=== PATIENT | female | born 1945 | race Caucasian/White ===

== ENCOUNTER 2017-09-18 13:49 | Observation (INO) ==
[2017-09-18] MEDS ORDERED: POTASSIUM CHLORIDE 20 MEQ TABLET PO PRN (13:58)
[2017-09-18] MEDS ORDERED: MAGNESIUM SULF RIDER 4 GM in PREMIX 1 EACH IV PRN (13:58)
[2017-09-18] MEDS ORDERED: BISACODYL 5 MG TABLET PO PRN (13:58)
[2017-09-18] MEDS ORDERED: MAGNESIUM SULF RIDER 2 GM in PREMIX 1 EACH IV PRN ×2 (13:58→14:01)
[2017-09-18] MEDS ORDERED: ZALEPLON 5 MG CAPSULE PO PRN (13:58)
[2017-09-18] MEDS ORDERED: ACETAMINOPHEN 325 MG TABLET PO PRN (13:58)
[2017-09-18] MEDS ORDERED: ONDANSETRON 4 MG/2 ML VIAL IV PRN (13:58)
[2017-09-18] MEDS ORDERED: POTASSIUM CHLORIDE RIDER 10 MEQ in PREMIX 1 EACH IV PRN (14:01)
[2017-09-18 15:33] LABS: Basophils # 0.1 10*3/uL (0.0-0.2); Basophils % 0.6 % (0.0-0.8); Eosinophils # 0.2 10*3/uL (0.0-0.87); Eosinophils % 2.7 % (0.00-10.9); Hematocrit 39.7 VOL% (35.7-47.0); Hemoglobin 13.9 GM/DL (12.0-16.0); Immature Granulocytes % 0.4 %; Immature Granulocytes Absolute 0.03 #; Lymphocytes # 2.6 10*3/uL (1.4-4.0); Lymphocytes % 31.3 % (21.3-54.2); Mean Corpuscular Hemoglobin 31 PG (27-34); Mean Platelet Volume 10.6 FL (9.6-12.0); Monocytes # 0.4 10*3/uL (0.11-0.8); Monocytes % 4.5 % (1.7-12.7); Neutrophils % 60.5 % (38.7-73.9); Platelet Count 236 T/CUMM (130-400); Red Blood Count 4.46 MC/CUMM (3.8-5.5); Red Cell Distribution Width 12.4 % (9.3-17.3); White Blood Count 8.2 T/CUMM (4-12)
[2017-09-18 15:43] LABS: PT Patient Result 10.7 SECS
[2017-09-18 16:24] LABS: Albumin 4.3 G/DL (3.4-5.0); Bilirubin,Total 0.7 MG/DL (0.2-1.0); Calcium 9.4 MG/DL (8.5-10.1); Osmolality,Calculated 282.5 MOS/KG (273-304); Potassium 4.2 MMOL/L (3.5-5.1); Total Protein 7.5 G/DL (6.4-8.3)
[2017-09-18 16:29] LABS: Troponin I Only < 0.015 NG/ML (0.00-0.045)
[2017-09-18 17:43] LABS: Troponin I Only < 0.015 NG/ML (0.00-0.045)
[2017-09-18] MEDS: INSULIN REGULAR 100 UNIT/ML SUBCUT SCH ×2 (18:26→22:30)
[2017-09-18] MEDS: ASPIRIN EC 81 MG TABLET PO SCH (18:29)
[2017-09-18 21:42] LABS: Troponin I Only < 0.015 NG/ML (0.00-0.045)
[2017-09-19 02:27] LABS: Basophils % 0.5 % (0.0-0.8); Eosinophils # 0.3 10*3/uL (0.0-0.87); Eosinophils % 3.2 % (0.00-10.9); Hematocrit 35.6 VOL% (35.7-47.0); Hemoglobin 12.3 GM/DL (12.0-16.0); Immature Granulocytes % 0.3 %; Immature Granulocytes Absolute 0.02 #; Lymphocytes # 3.5 10*3/uL (1.4-4.0); Lymphocytes % 45.7 % (21.3-54.2); Mean Corpuscular HGB Conc 34.6 GM/DL (32-36); Mean Corpuscular Hemoglobin 31 PG (27-34); Mean Corpuscular Volume 89.7 FL (87-102); Mean Platelet Volume 10.8 FL (9.6-12.0); Monocytes # 0.5 10*3/uL (0.11-0.8); Monocytes % 6.2 % (1.7-12.7); Neutrophils # 3.4 10*3/uL (1.4-7.4); Neutrophils % 44.1 % (38.7-73.9); Platelet Count 193 T/CUMM (130-400); Red Blood Count 3.97 MC/CUMM (3.8-5.5); Red Cell Distribution Width 12.1 % (9.3-17.3); White Blood Count 7.7 T/CUMM (4-12)
[2017-09-19 02:53] LABS: Calcium 8.6 MG/DL (8.5-10.1); Osmolality,Calculated 290.8 MOS/KG (273-304); Potassium 3.7 MMOL/L (3.5-5.1); Risk Ratio 3.94; VLDL CHOLESTEROL 24.8 MG/DL
[2017-09-19] MEDS ORDERED: SODIUM CHLORIDE 0.9% 1,000 ML IV SCH ×2 (04:00→06:00)
[2017-09-19] MEDS ORDERED: CLOPIDOGREL 75 MG TABLET ONE (06:45)
[2017-09-19] MEDS: PANTOPRAZOLE 40 MG TABLET PO SCH (06:50)
[2017-09-19] MEDS: LISINOPRIL 10 MG TABLET PO SCH (06:50)
[2017-09-19] MEDS: CLOPIDOGREL 75 MG TABLET PO SCH ×2 (06:50→15:58)
[2017-09-19] MEDS: ASPIRIN EC 81 MG TABLET PO SCH ×2 (06:51→15:56)
[2017-09-19] MEDS ORDERED: DIAZEPAM 5 MG TABLET PO ONE ×2 (07:00→09:00)
[2017-09-19] MEDS ORDERED: diphenhydrAMINE CAP 25 MG CAPSULE PO ONE ×2 (07:00→09:00)
[2017-09-19] MEDS ORDERED: fentaNYL 100 MCG/2 ML VIAL ONE (07:04)
[2017-09-19] MEDS ORDERED: MIDAZOLAM 2 MG/2 ML VIAL ONE (07:04)
[2017-09-19] MEDS ORDERED: BIVALIRUDIN 250 MG VIAL IV ONE (07:22)
[2017-09-19] MEDS ORDERED: LIDOCAINE 1% 20 ML VIAL ONE (07:32)
[2017-09-19] MEDS ORDERED: HEPARIN/NACL 0.9% 2 UNITS/ML 1,500 ML IV ONE (07:32)
[2017-09-19] MEDS: INSULIN REGULAR 100 UNIT/ML SUBCUT SCH ×4 (07:41→20:33)
[2017-09-19] MEDS ORDERED: hydrALAZINE 20 MG/1 ML VIAL ONE (07:45)
[2017-09-19] MEDS ORDERED: hydrALAZINE 20 MG/1 ML VIAL IV PRN (08:02)
[2017-09-19] MEDS ORDERED: CLOPIDOGREL 300 MG TABLET ONE (08:11)
[2017-09-19 08:35] LABS: Apearance,Urine CLEAR (Clear); Bilirubin,Urine Negative (Negative); Blood, Urine Negative (Negative); Glucose,Urine (UA) Negative (Negative); Ketones,Urine Negative (Negative); Nitrite,Urine Negative (Negative); Protein,Urine Negative; RBC,Urine 1 /HPF (0-4); Urine Color Colorless (Yellow); Urine Specific Gravity 1.026 (1.001-1.035); Urine Urobilinogen < 2.0 EU/DL (0.2-1.0); WBC,Urine <1 /HPF (0-6)
[2017-09-19] MEDS ORDERED: diphenhydrAMINE CAP 25 MG CAPSULE PO PRN (13:43)
[2017-09-19] MEDS ORDERED: MAGNESIUM HYDROXIDE SUSP 30 ML UDCUP PO PRN (13:43)
[2017-09-19] MEDS: CYANOCOBALAMIN 500 MCG TABLET PO SCH (17:54)
[2017-09-19] MEDS: ATORVASTATIN 40 MG TABLET PO SCH (17:55)
[2017-09-19] MEDS: CITALOPRAM 20 MG TABLET PO SCH (17:55)
[2017-09-19] MEDS: CHOLECALCIFEROL 2000 UNIT PO SCH (17:55)
[2017-09-19] MEDS: CARVEDILOL 3.125 MG TABLET PO SCH ×2 (17:56→20:22)
[2017-09-20 01:02] LABS: Basophils # 0.1 10*3/uL (0.0-0.2); Basophils % 0.6 % (0.0-0.8); Eosinophils # 0.3 10*3/uL (0.0-0.87); Hematocrit 35.6 VOL% (35.7-47.0); Hemoglobin 12.1 GM/DL (12.0-16.0); Immature Granulocytes % 0.3 %; Immature Granulocytes Absolute 0.02 #; Lymphocytes # 2.6 10*3/uL (1.4-4.0); Lymphocytes % 33.2 % (21.3-54.2); Mean Corpuscular Hemoglobin 30 PG (27-34); Mean Corpuscular Volume 89.4 FL (87-102); Mean Platelet Volume 11.2 FL (9.6-12.0); Monocytes # 0.5 10*3/uL (0.11-0.8); Monocytes % 5.8 % (1.7-12.7); Neutrophils # 4.4 10*3/uL (1.4-7.4); Neutrophils % 56.1 % (38.7-73.9); Platelet Count 199 T/CUMM (130-400); Red Blood Count 3.98 MC/CUMM (3.8-5.5); Red Cell Distribution Width 12.5 % (9.3-17.3); White Blood Count 7.9 T/CUMM (4-12)
[2017-09-20 01:28] LABS: Calcium 8.4 MG/DL (8.5-10.1); Osmolality,Calculated 283.3 MOS/KG (273-304); Potassium 3.7 MMOL/L (3.5-5.1); Potassium 3.8 MMOL/L (3.5-5.1)
[2017-09-20 07:52] VITALS: BP 118/71
[2017-09-20] MEDS: INSULIN REGULAR 100 UNIT/ML SUBCUT SCH (07:58)
[2017-09-20] MEDS: CHOLECALCIFEROL 2000 UNIT PO SCH (09:32)
[2017-09-20] MEDS: CYANOCOBALAMIN 500 MCG TABLET PO SCH ×2 (09:33→09:37)
[2017-09-20] MEDS: CLOPIDOGREL 75 MG TABLET PO SCH (09:33)
[2017-09-20] MEDS: CITALOPRAM 20 MG TABLET PO SCH (09:33)
[2017-09-20] MEDS: ATORVASTATIN 40 MG TABLET PO SCH (09:33)
[2017-09-20] MEDS: CARVEDILOL 3.125 MG TABLET PO SCH (09:33)
[2017-09-20] MEDS: LISINOPRIL 10 MG TABLET PO SCH (09:33)
[2017-09-20] MEDS: ASPIRIN EC 81 MG TABLET PO SCH (09:33)
[2017-09-20] MEDS: PANTOPRAZOLE 40 MG TABLET PO SCH (09:33)
== END 2017-09-20 12:25 | disposition home or self-care (01) ==
LOC: INTOOBSV 13:58 → N.TELEN 14:54
PROVIDERS: ADMIT Internal Medicine Cardiovascular Disease; ATTEND Internal Medicine Cardiovascular Disease
PROC: CLCCHCL (ICD-10-PCS; 2017-09-19 07:45)

== ENCOUNTER 2017-10-28 10:39 | Observation (INO) ==
[2017-10-28 10:59] LABS: Basophils % 0.4 % (0.0-0.8); Eosinophils % 0.4 % (0.00-10.9); Hematocrit 40.8 VOL% (35.7-47.0); Hemoglobin 14.8 GM/DL (12.0-16.0); Immature Granulocytes % 0.5 %; Immature Granulocytes Absolute 0.05 #; Lymphocytes # 1.7 10*3/uL (1.4-4.0); Lymphocytes % 17.7 % (21.3-54.2); Mean Corpuscular HGB Conc 36.3 GM/DL (32-36); Mean Corpuscular Hemoglobin 31 PG (27-34); Mean Corpuscular Volume 86.6 FL (87-102); Mean Platelet Volume 10.9 FL (9.6-12.0); Monocytes # 0.5 10*3/uL (0.11-0.8); Neutrophils # 7.4 10*3/uL (1.4-7.4); Platelet Count 237 T/CUMM (130-400); Red Blood Count 4.71 MC/CUMM (3.8-5.5); Red Cell Distribution Width 12.1 % (9.3-17.3); White Blood Count 9.8 T/CUMM (4-12)
[2017-10-28 11:22] LABS: Alanine Aminotransferase 19 U/L (13-56); Albumin 4.1 G/DL (3.4-5.0); Alkaline Phosphatase 68 U/L (45-117); Aspartate Amino Transferase 19 U/L (0-37); Blood Urea Nitrogen 13 MG/DL (7-18); Calcium 8.9 MG/DL (8.5-10.1); Glucose 174 MG/DL (74-106); Osmolality,Calculated 282.4 MOS/KG (273-304); Potassium 3.7 MMOL/L (3.5-5.1); Sodium 140 MMOL/L (136-145); Total Protein 7.5 G/DL (6.4-8.3); Troponin I Only < 0.015 NG/ML (0.00-0.045)
[2017-10-28] MEDS ORDERED: MAGNESIUM SULF RIDER 2 GM in PREMIX 1 EACH IV PRN ×2 (13:13→15:08)
[2017-10-28] MEDS ORDERED: MAGNESIUM SULF RIDER 4 GM in PREMIX 1 EACH IV PRN ×2 (13:13→15:08)
[2017-10-28] MEDS ORDERED: POTASSIUM CHLORIDE 20 MEQ TABLET PO PRN (15:08)
[2017-10-28] MEDS ORDERED: ONDANSETRON 4 MG/2 ML VIAL IV PRN (15:08)
[2017-10-28] MEDS ORDERED: DOCUSATE SODIUM 100 MG CAPSULE PO PRN (15:08)
[2017-10-28] MEDS ORDERED: MORPHINE 4 MG/1 ML VIAL IV PRN (15:08)
[2017-10-28] MEDS ORDERED: ZALEPLON 5 MG CAPSULE PO PRN (15:08)
[2017-10-28] MEDS ORDERED: diphenhydrAMINE CAP 25 MG CAPSULE PO PRN (15:13)
[2017-10-28] MEDS ORDERED: MAGNESIUM HYDROXIDE SUSP 30 ML UDCUP PO PRN (15:13)
[2017-10-28] MEDS ORDERED: HYOSCYAMINE 0.125 MG TABLET SL PRN (15:13)
[2017-10-28] MEDS ORDERED: METOPROLOL SUCCINATE XL 25 MG TABLET PO SCH (15:30)
[2017-10-28] MEDS: ISOSORBIDE MONONITRATE 30 MG TABLET PO SCH (17:24)
[2017-10-28] MEDS: SODIUM CHLORIDE 0.45% 1,000 ML IV SCH (17:24)
[2017-10-28] MEDS ORDERED: ATORVASTATIN 40 MG TABLET PO SCH (21:00)
[2017-10-28] MEDS ORDERED: CITALOPRAM 20 MG TABLET PO SCH (21:00)
[2017-10-28] MEDS: INSULIN LISPRO 100 UNIT/ML SUBCUT SCH (21:03)
[2017-10-28] MEDS: RANOLAZINE 500 MG TABLET PO SCH (21:09)
[2017-10-29 00:30] LABS: Basophils % 0.3 % (0.0-0.8); Eosinophils # 0.1 10*3/uL (0.0-0.87); Hematocrit 36.4 VOL% (35.7-47.0); Hemoglobin 12.8 GM/DL (12.0-16.0); Immature Granulocytes % 0.4 %; Immature Granulocytes Absolute 0.05 #; Lymphocytes # 3.9 10*3/uL (1.4-4.0); Lymphocytes % 33.7 % (21.3-54.2); Mean Corpuscular HGB Conc 35.2 GM/DL (32-36); Mean Corpuscular Hemoglobin 31 PG (27-34); Mean Corpuscular Volume 87.1 FL (87-102); Monocytes # 0.7 10*3/uL (0.11-0.8); Monocytes % 6.3 % (1.7-12.7); Neutrophils # 6.8 10*3/uL (1.4-7.4); Neutrophils % 58.3 % (38.7-73.9); Platelet Count 201 T/CUMM (130-400); Red Blood Count 4.18 MC/CUMM (3.8-5.5); Red Cell Distribution Width 12.2 % (9.3-17.3); White Blood Count 11.7 T/CUMM (4-12)
[2017-10-29 00:49] LABS: Risk Ratio 3.75; VLDL CHOLESTEROL 27.4 MG/DL
[2017-10-29 01:01] LABS: Albumin 3.6 G/DL (3.4-5.0); Bilirubin,Total 1.1 MG/DL (0.2-1.0); Calcium 8.6 MG/DL (8.5-10.1); Osmolality,Calculated 285.3 MOS/KG (273-304); Potassium 3.9 MMOL/L (3.5-5.1); Total Protein 6.4 G/DL (6.4-8.3)
[2017-10-29 06:08] LABS: Apearance,Urine CLEAR (Clear); Bilirubin,Urine Negative (Negative); Blood, Urine Negative (Negative); Glucose,Urine (UA) Negative (Negative); Ketones,Urine Negative (Negative); Mucus,Urine Occasional /LPF (Occasional); Nitrite,Urine Negative (Negative); Protein,Urine Negative; RBC,Urine <1 /HPF (0-4); Squamous Epithelial Cell,Urine Occasional /HPF (0-10); Urine Color Yellow (Yellow); Urine Specific Gravity 1.017 (1.001-1.035); Urine Urobilinogen < 2.0 EU/DL (0.2-1.0); WBC,Urine 5 /HPF (0-6)
[2017-10-29] MEDS: SODIUM CHLORIDE 0.45% 1,000 ML IV SCH (06:20)
[2017-10-29] MEDS ORDERED: metFORMIN 500 MG TABLET PO SCH (08:00)
[2017-10-29] MEDS ORDERED: ASPIRIN EC 81 MG TABLET PO SCH (09:00)
[2017-10-29] MEDS ORDERED: CYANOCOBALAMIN 500 MCG TABLET PO SCH (09:00)
[2017-10-29] MEDS ORDERED: CHOLECALCIFEROL 1,000 UNIT TABLET PO SCH (09:00)
[2017-10-29] MEDS ORDERED: CLOPIDOGREL 75 MG TABLET PO SCH (09:00)
[2017-10-29] MEDS ORDERED: PANTOPRAZOLE 40 MG TABLET PO SCH (09:00)
[2017-10-29] MEDS: ISOSORBIDE MONONITRATE 30 MG TABLET PO SCH (09:30)
[2017-10-29] MEDS: RANOLAZINE 500 MG TABLET PO SCH (09:30)
[2017-10-29] MEDS: INSULIN LISPRO 100 UNIT/ML SUBCUT SCH ×2 (09:32→12:13)
[2017-10-29 11:59] VITALS: BP 120/58
== END 2017-10-29 15:02 | disposition home or self-care (01) ==
LOC: N.ED 10:39 → N.EDINP 10:39 → N.TELES 15:15
PROVIDERS: ADMIT Internal Medicine Cardiovascular Disease; ATTEND Internal Medicine Cardiovascular Disease

== ENCOUNTER 2019-09-01 10:50 | Inpatient (IN) ==
[2019-09-01 11:49] LABS: Basophils % 0.7 % (0.0-0.8); Eosinophils # 0.2 10*3/uL (0.0-0.87); Eosinophils % 2.9 % (0.00-10.9); Hematocrit 37.5 VOL% (35.7-47.0); Hemoglobin 12.1 GM/DL (12.0-16.0); Immature Granulocytes % 0.2 %; Immature Granulocytes Absolute 0.01 #; Lymphocytes # 1.3 10*3/uL (1.4-4.0); Lymphocytes % 23.7 % (21.3-54.2); Mean Corpuscular HGB Conc 32.3 GM/DL (32-36); Mean Corpuscular Volume 92.8 FL (87-102); Monocytes % 5.6 % (1.7-12.7); Neutrophils % 66.9 % (38.7-73.9); Platelet Count 175 T/CUMM (130-400); Red Blood Count 4.04 MC/CUMM (3.8-5.5); Red Cell Distribution Width 12.5 % (9.3-17.3); White Blood Count 5.5 T/CUMM (4-12)
[2019-09-01 11:59] LABS: Bilirubin,Total 0.8 MG/DL (0.2-1.0); Calcium 9.4 MG/DL (8.5-10.1); Osmolality,Calculated 280.4 MOS/KG (273-304); Total Protein 7.1 G/DL (6.4-8.3)
[2019-09-01] MEDS ORDERED: ONDANSETRON 4 MG/2 ML VIAL IV PRN (13:03)
[2019-09-01] MEDS ORDERED: ACETAMINOPHEN 325 MG TABLET PO PRN (13:03)
[2019-09-01 13:59] LABS: Apearance,Urine CLOUDY (Clear); Bilirubin,Urine Negative (Negative); Blood, Urine Small mg/dL (Negative); Glucose,Urine (UA) Negative (Negative); Hyaline Casts,Urine 5 /LPF (0-3); Ketones,Urine Negative (Negative); Mucus,Urine Many /LPF (Occasional); Nitrite,Urine Negative (Negative); Protein,Urine Negative; RBC,Urine 3 /HPF (0-4); Squamous Epithelial Cell,Urine Occasional /HPF (0-10); Urine Color Amber (Yellow); Urine Specific Gravity 1.028 (1.001-1.035); WBC,Urine 1 /HPF (0-6)
[2019-09-01] MEDS ORDERED: GLUCAGON 1 MG VIAL IM PRN (16:51)
[2019-09-01] MEDS ORDERED: DEXTROSE 10% 250 ML BAG IV PRN (16:51)
[2019-09-01] MEDS: DONEPEZIL 10 MG TABLET PO SCH (21:17)
[2019-09-01] MEDS: ATORVASTATIN 40 MG TABLET PO SCH (21:18)
[2019-09-01] MEDS: INSULIN LISPRO 100 UNIT/ML SUBCUT SCH (21:22)
[2019-09-02 04:30] LABS: Basophils % 0.5 % (0.0-0.8); Eosinophils # 0.2 10*3/uL (0.0-0.87); Eosinophils % 4.1 % (0.00-10.9); Hematocrit 36.9 VOL% (35.7-47.0); Hemoglobin 12.1 GM/DL (12.0-16.0); Immature Granulocytes % 0.2 %; Immature Granulocytes Absolute 0.01 #; Lymphocytes # 2.3 10*3/uL (1.4-4.0); Lymphocytes % 39.6 % (21.3-54.2); Mean Corpuscular HGB Conc 32.8 GM/DL (32-36); Mean Corpuscular Volume 92.7 FL (87-102); Mean Platelet Volume 11.1 FL (9.6-12.0); Neutrophils % 48.6 % (38.7-73.9); Platelet Count 161 T/CUMM (130-400); Red Blood Count 3.98 MC/CUMM (3.8-5.5); Red Cell Distribution Width 12.4 % (9.3-17.3); White Blood Count 5.9 T/CUMM (4-12)
[2019-09-02 05:14] LABS: Calcium 8.9 MG/DL (8.5-10.1); Osmolality,Calculated 282.1 MOS/KG (273-304); Risk Ratio 2.23; Thyroid Stimulating Hormone 2.31 uIU/ml (0.358-3.74)
[2019-09-02] MEDS: INSULIN LISPRO 100 UNIT/ML SUBCUT SCH ×4 (08:31→20:12)
[2019-09-02] MEDS ORDERED: CLOPIDOGREL 75 MG TABLET PO SCH (09:00)
[2019-09-02] MEDS ORDERED: ASPIRIN EC 81 MG TABLET PO SCH (09:00)
[2019-09-02] MEDS ORDERED: ceFAZolin 1,000 MG in SYRINGE 1 EACH IV ONE (09:20)
[2019-09-02] MEDS ORDERED: ceFAZolin 1,000 MG VIAL IRRIG ONE (09:20)
[2019-09-02] MEDS ORDERED: HEPARIN/NACL 0.9% 2 UNITS/ML 500 ML IV ONE (09:22)
[2019-09-02] MEDS ORDERED: LIDOCAINE 1% 20 ML VIAL ONE (09:22)
[2019-09-02] MEDS ORDERED: ceFAZolin 1,000 MG VIAL ONE (09:33)
[2019-09-02] MEDS ORDERED: fentaNYL 100 MCG/2 ML VIAL ONE (09:35)
[2019-09-02] MEDS ORDERED: MIDAZOLAM 2 MG/2 ML VIAL ONE (09:35)
[2019-09-02] MEDS ORDERED: TISSUE ADHESIVE 1 EACH APPLICATOR TOP ONE (10:34)
[2019-09-02] MEDS: FLUoxetine 20 MG CAPSULE PO SCH (11:45)
[2019-09-02] MEDS: METOPROLOL SUCCINATE XL 50 MG TABLET PO SCH ×2 (11:45→20:12)
[2019-09-02] MEDS: ISOSORBIDE MONONITRATE 30 MG TABLET PO SCH (11:45)
[2019-09-02] MEDS: CHOLECALCIFEROL 1,000 UNIT TABLET PO SCH (11:45)
[2019-09-02] MEDS: CYANOCOBALAMIN 500 MCG TABLET PO SCH (11:45)
[2019-09-02] MEDS: ceFAZolin 1,000 MG in SYRINGE 1 EACH IV SCH (16:10)
[2019-09-02] MEDS ORDERED: diphenhydrAMINE 50 MG/1 ML VIAL IV ONE (16:13)
[2019-09-02] MEDS ORDERED: diphenhydrAMINE CAP 25 MG CAPSULE PO PRN (16:17)
[2019-09-02] MEDS: DONEPEZIL 10 MG TABLET PO SCH (20:12)
[2019-09-02] MEDS: ATORVASTATIN 40 MG TABLET PO SCH (20:12)
[2019-09-03] MEDS: ceFAZolin 1,000 MG in SYRINGE 1 EACH IV SCH (01:35)
[2019-09-03 04:57] LABS: Basophils % 0.6 % (0.0-0.8); Eosinophils # 0.3 10*3/uL (0.0-0.87); Eosinophils % 3.8 % (0.00-10.9); Hematocrit 37.6 VOL% (35.7-47.0); Hemoglobin 12.5 GM/DL (12.0-16.0); Immature Granulocytes % 0.3 %; Immature Granulocytes Absolute 0.02 #; Lymphocytes # 1.7 10*3/uL (1.4-4.0); Lymphocytes % 24.4 % (21.3-54.2); Mean Corpuscular HGB Conc 33.2 GM/DL (32-36); Mean Corpuscular Volume 90.6 FL (87-102); Monocytes % 5.6 % (1.7-12.7); Neutrophils % 65.3 % (38.7-73.9); Platelet Count 159 T/CUMM (130-400); Red Blood Count 4.15 MC/CUMM (3.8-5.5); Red Cell Distribution Width 12.3 % (9.3-17.3); White Blood Count 7.1 T/CUMM (4-12)
[2019-09-03 05:28] LABS: Calcium 8.9 MG/DL (8.5-10.1); Osmolality,Calculated 278.5 MOS/KG (273-304)
[2019-09-03] MEDS: INSULIN LISPRO 100 UNIT/ML SUBCUT SCH ×2 (08:12→12:15)
[2019-09-03] MEDS: CHOLECALCIFEROL 1,000 UNIT TABLET PO SCH (08:12)
[2019-09-03] MEDS: METOPROLOL SUCCINATE XL 50 MG TABLET PO SCH (08:13)
[2019-09-03] MEDS: FLUoxetine 20 MG CAPSULE PO SCH (08:13)
[2019-09-03] MEDS: CYANOCOBALAMIN 500 MCG TABLET PO SCH (08:13)
[2019-09-03] MEDS: ISOSORBIDE MONONITRATE 30 MG TABLET PO SCH (08:13)
[2019-09-03 12:09] VITALS: BP 129/67
== END 2019-09-03 12:47 | disposition home or self-care (01) | DRG 244 ==
LOC: N.ED 10:50 → N.EDINP 13:02 → N.TELES 15:18
PROVIDERS: ADMIT Internal Medicine; ATTEND Internal Medicine